=== PATIENT | female | born 1960 | race Caucasian/White ===

== ENCOUNTER → 2021-04-07 | Outpatient (CLI) | payer BC ==
--- NOTE | 2021-04-09 14:38 | MM ---
Reason for exam: screening (asymptomatic). Last mammogram was performed 17 years and 11 months ago. History: Patient is postmenopausal. Took hormonal contraceptives for 10 years. Physical Findings: A clinical breast exam by your physician is recommended on an annual basis and results should be correlated with mammographic findings. MG 3D Screening Mammo W/Cad Bilateral CC and MLO view(s) were taken. Prior study comparison: February 28, 2019, mammogram, performed at [facility]. The breast tissue is heterogeneously dense. This may lower the sensitivity of mammography. Regional punctate calcifications bilaterally. No significant changes when compared with prior studies. ASSESSMENT: Benign, BI-RAD 2 RECOMMENDATION: Routine screening mammogram of both breasts in 1 year.
== END | disposition home or self-care (01) ==
LOC: RADMAMWWP 15:43
PROVIDERS: ATTEND Obstetrics & Gynecology Gynecology
DX: Z12.31 Encounter for screening mammogram for malignant neoplasm of breast (principal); Z78.0 Asymptomatic menopausal state
CPT/HCPCS: 77063; 77067

== ENCOUNTER → 2022-04-21 | Outpatient (CLI) | payer OTHER ==
--- NOTE | 2022-04-22 09:33 | MM ---
Reason for Exam: Screening (asymptomatic). Last screening mammogram was performed 12 month(s) ago. Patient History: Menarche at age 13. First Full-Term at age 28. Late child-bearing (after 28). Left ovary removed at age 59. Right ovary removed at age 59. Hysterectomy at age 59. Postmenopausal. Hormonal Contraceptives for 10 years until age 30. Risk Values: Macy 5 year model risk: 2.0%. NCI Lifetime model risk: 8.4%. Prior Study Comparison: 04/29/2003 Left Special View Mammogram, [facility]. 02/28/2019 Screening Mammogram, [facility]. 04/07/2021 Bilateral Screening Mammogram, [facility]. Tissue Density: The breast tissue is heterogeneously dense. This may lower the sensitivity of mammography. Findings: Analyzed By CAD. There is no suspicious group of microcalcifications or new suspicious mass in either breast. Overall Assessment: Negative, BI-RAD 1 Management: Screening Mammogram of both breasts in 1 year. A clinical breast exam by your physician is recommended on an annual basis and results should be correlated with mammographic findings. [facility] will attempt to contact patient to return for supplemental views and ultrasound if indicated. Electronically signed and approved by: Jeferson Pardo DO
== END | disposition home or self-care (01) ==
LOC: RADMAMWWP 09:05
PROVIDERS: ATTEND Internal Medicine
DX: Z12.31 Encounter for screening mammogram for malignant neoplasm of breast (principal); Z78.0 Asymptomatic menopausal state
CPT/HCPCS: 77067

== ENCOUNTER → 2023-11-08 | Outpatient (CLI) | payer MEDICARE ==
--- NOTE | 2023-11-08 14:34 | XR ---
EXAMINATION TYPE: XR foot complete 3 views LT DATE OF EXAM: 11/08/2023 Comparison: None Clinical History: 63-year-old female [id number] LT FOOT PAIN Findings: Small to moderate-sized posterior and plantar heel spurs. Os peroneum. Mild degenerative change first and the joint. Mild dorsal midfoot soft tissue swelling. No acute fracture, subluxation, dislocation seen. Impression: Mild first MTP joint OA. Small posterior and plantar heel spurs. No acute osseous abnormality seen. T here may be mild dorsal soft tissue swelling.
== END | disposition home or self-care (01) ==
LOC: RADXRYALE 12:06
PROVIDERS: ATTEND Internal Medicine
DX: M19.072 Primary osteoarthritis, left ankle and foot (principal); M77.32 Calcaneal spur, left foot